=== PATIENT | female | born 1955 | race Caucasian/White ===

== ENCOUNTER 2025-06-29 15:39 | Emergency (ER) | payer MEDICARE ==
[~2025-06-29] VITALS: Ht 170.2 cm; Wt 84.4 kg
[2025-06-29 15:50] VITALS: TEMP 98.3
[2025-06-29 16:33] LABS: PLATELET COUNT (AUTO) 280 K/uL (150-450); RED BLOOD CELL COUNT(AUTO) 3.68 MIL/uL (4.0-5.2); RED CELL DISTRIBUTION WIDTH 16.4 % (11.5-15.0); WHITE BLOOD COUNT (AUTO) 11.3 K/uL (4.3-11.0)
[2025-06-29 16:43] LABS: CALCIUM, SERUM 8.9 mg/dL (8.5-10.1); CREATININE 1.3 mg/dL (0.6-1.3); SODIUM SERUM 138 mmol/L (136-145); UREA NITROGEN, BLOOD 20 mg/dL (7-18)
[2025-06-29 16:48] LABS: ASPARTATE AMINOTRANSFERASE 113 U/L (15-37); TOTAL PROTEIN, SERUM 6.6 g/dL (6.4-8.2)
[2025-06-29] MEDS ORDERED: IV NS 0.9% 250 ML IV ONE (16:56)
[2025-06-29] MEDS ORDERED: IOHEXOL-350 100 ML VIAL IV ONE (16:56)
[2025-06-29 17:09] LABS: SERUM AMMONIA < 10 umol/L (11-32)
[2025-06-29] MEDS ORDERED: HEPARIN INFUSION/D5W 500 ML IV ONE (19:04)
[2025-06-29] MEDS ORDERED: hydrALAZINE HCL IV 20 MG VIAL ONE (19:08)
[2025-06-29] MEDS: hydrALAZINE HCL IV 20 MG VIAL IV ONE (19:13)
[2025-06-29] MEDS ORDERED: HEPARIN SODIUM, PORCINE 5000 UNITS/1 ML VIAL ONE (19:31)
[2025-06-29 20:06] LABS: INR 1.19 (0.91-1.10)
[2025-06-29] MEDS: HEPARIN SODIUM, PORCINE 5000 UNITS/1 ML VIAL IV ONE (20:17)
[2025-06-29] MEDS: HEPARIN INFUSION/D5W 500 ML IV PRN (20:25)
[2025-06-29 23:30] VITALS: BP 161/78; O2SAT 100
== END 2025-06-30 01:32 | disposition short-term general hospital (02) ==
LOC: ER 15:46
DX: I26.99 Other pulmonary embolism without acute cor pulmonale (principal); I82.421 Acute embolism and thrombosis of right iliac vein; K83.1 Obstruction of bile duct; R16.0 Hepatomegaly, not elsewhere classified; E11.9 Type 2 diabetes mellitus without complications
CPT/HCPCS: 99291; 71275; 96365; 96366; 93971; 96375; 93005; 74177; 82140; 85025; 80048; 83690; 80076; 36415; 85730; J1644 ×2; J0360; J7050; Q9967